=== PATIENT | male | born 1975 | race Caucasian/White ===

== ENCOUNTER 2016-04-06 10:26 | Emergency (ER) | payer OTHER ==
[2016-04-06 10:35] VITALS: TEMP 98.1
--- NOTE | 2016-04-06 10:53 | EDPHY ---
HPI/HX/ROS/PE/MDM Narrative: CHIEF COMPLAINT: Neck abscess HPI: The patient is a 41 y/o male arriving at the recommendation of his PCP with a painful abscess on the right side of his neck. He reports he has a history of "boils" that usually drain on their own; he does not know what causes these abscesses. He first noticed some swelling and a small bump last weekend, about 6 days ago. He says it was largest on Saturday and has decreased slightly in size and draining a small amount of fluid since then. He denies fever or systemic illness. No other pertinent medical history. REVIEW OF SYSTEMS: Aside from elements discussed in the HPI, a comprehensive 10-point review of systems was reviewed and is negative. PMH: Recurrent abscesses SOCIAL HISTORY: Works as manager call center. Lives in [place]. PCP: Dr. Sanchez. PHYSICAL EXAM: General:Patient is alert, in no acute distress. ENT:Eyes are normal to inspection. ENT inspection normal. Neck: Cutaneous abscess with small necrotic center measuring 1in diameter just inferior to right ear, 2cm of surrounding erythema and cellulitis. Full range of motion. Respiratory:No respiratory distress. Breath sounds normal bilaterally. Cardiovascular: Regular rate and rhythm. Strong peripheral pulses. Normal cap refill. Abdomen:The abdomen is nontender to palpation. There are no peritoneal signs. There are normal bowel sounds. Back: Normal to inspection. No tenderness to palpation. Skin: Normal color. No rash. Warm and dry. Extremities: Normal appearance. Full range of motion. Neuro: Oriented x3. Normal motor function. Normal sensory function. ED Course: Procedure: Limited bedside ultrasound of the right side of neck A limited bedside ultrasound was performed and interpreted by myself for abscess evaluation. The study was positive for small phlegmon abscess above the muscle. Large vessels were identified and not located near the site of abscess The procedure was interpreted and performed by myself, Dr. Olivas. Procedure: Incision and Drainage abscess. The patient's abscess was located on the right side of his neck inferior to ear. Risks, benefits, alternatives discussed with the patient and consent obtained. The area was prepped and draped in sterile fashion. The patient received local anesthesia with 1% lidocaine with epinephrine. The abscess was incised with a #11 blade and 1-2cc of purulent drainage was expressed. Swabs were taken for culture. The wound was packed. The patient tolerated the procedure well. The procedure was performed by myself. IV established. 1gm IV Vancomycin administered. Discussed follow up instructions with ENT or PCP in 2 days for packing removal. He will be discharged on Keflex. Return precautions given. He is comfortable with this plan. MDM: This patient presents with cutaneous abscess to the lateral aspect of his neck. I did offer him ENT consultation verses incision and drainage here in the emergency department by myself and he elected to go with the latter. I used a bedside ultrasound to identify the area and exclude any adjacent blood vessels or nerves. Under direct ultrasound visualization, I performed small shallow incision and drainage which did result in some pus drainage. Due to the location of the abscess, the incision was not extended beyond 1 cm in width. Packing was placed. The the patient was treated with 1 g of vancomycin and will be discharged on Keflex. I did send the swab for culture. I explained to the patient the high risk nature of the location of his abscess and he promises to return for any worsening of condition. 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 General Time Seen by Provider: 04/06/16 10:42 Initial Vital Signs: Initial Vital Signs Temperature (C) 36.7 C 04/06/16 10:31 Heart Rate 71 04/06/16 10:31 Respiratory Rate 18 04/06/16 10:31 Blood Pressure 112/78 04/06/16 10:31 O2 Sat (%) 96 04/06/16 10:31 O2 Delivery Mode Room Air Allergies/Adverse Reactions: Sulfa (Sulfonamide Antibiotics) Allergy (Verified 04/06/16 10:35) Home Medications: Medication Instructions Recorded Cephalexin [Keflex] 500 mg PO Q6H #28 cap 04/06/16 Departure - Departure Disposition: Home, Routine, Self-Care Clinical Impression: Neck abscess Condition: Good Instructions: Cephalexin (By mouth), Abscess (ED) Additional Instructions: 1. Take Keflex (antibiotic) as prescribed. Be sure to finish the entire prescription even if you feel better. 2. Follow up with your PCP or ENT to have packing removed in 2 days. You've been referred to Dr. Clayton, ENT, to follow up with as needed. 3. Use Tylenol or ibuprofen as directed on the packaging when needed for pain. 4. Monitor the site regularly. I recommend taking pictures of it daily and bringing those to your follow up appointment. 5. Return to the ED for failure to improve after 3-4 days, fever, or worsening redness and pain. Referrals: Ed Sanchez MD [Primary Care Provider] - As per Instructions Hernan Clayton MD [Medical Doctor] - As per Instructions Prescriptions: Cephalexin [Keflex] 500 mg PO Q6H #28 cap Report Scribed for: John Olivas Report Scribed by: Monika Geronimo Date of Report: 04/06/16 Time of Report: 10:45 Physician Review and Approval Statement: Portions of this note were transcribed by an ED scribe. I personally performed the history, physical exam, and medical decision making; and confirm the accuracy of the information in the transcribed note.
[2016-04-06] MEDS ORDERED: VANCOMYCIN HCL/NORMAL SALINE 250 ML IV ONE (11:18)
[2016-04-06 11:35] LABS: % IMMATURE GRANULYOCYTES 0.4 % (0.0-1.1); ABSOLUTE IMMATURE GRANULOCYTES 0.04 10^3/uL (0.00-0.10); ADD DIFF? NO; ADD MORPH? NO; ADD SCAN? NO; ATYPICAL LYMPHOCYTE FLAG 20 (0-99); FRAGMENT RBC FLAG 0 (0-99); HEMATOCRIT 48.3 % (40.0-51.0); HEMOGLOBIN 17.2 g/dL (13.7-17.5); LEFT SHIFT FLG 0 (0-99); LIPEMIA HEMOLYSIS FLAG 90 (0-99); MEAN CELL HEMOGLOBIN 30.8 pg (27.9-34.1); MEAN CELL HEMOGLOBIN CONCENTR. 35.6 g/dL (32.4-36.7); MEAN CELL VOLUME 86.6 fL (81.5-99.8); MEAN PLATELET VOLUME 10.5 fL (8.7-11.7); PLATELET CLUMPS FLAG 10 (0-99); PLATELET COUNT 275 10^3/uL (150-400); RED BLOOD CELL COUNT 5.58 10^6/uL (4.40-6.38)
[2016-04-06 12:04] LABS: ANION GAP 11 mEq/L (8-16); CALCIUM 9.1 mg/dL (8.5-10.4); CARBON DIOXIDE 24 mEq/l (22-31); CHLORIDE 108 mEq/L (97-110); CREATININE 0.8 mg/dL (0.7-1.3); GLOMERULAR FILTRATION RATE > 60; GLUCOSE 96 mg/dL (70-100); POTASSIUM 4.3 mEq/L (3.5-5.2); SODIUM 143 mEq/L (134-144)
[2016-04-06 12:42] VITALS: BP 136/86; PULSE 74; RESP 16; O2SAT 95
== END 2016-04-06 12:49 | disposition home or self-care (01) ==
PROC: 0J9400Z Drainage of Right Neck Subcutaneous Tissue and Fascia with Drainage Device, Open Approach (ICD-10-PCS; principal; 2016-04-06)
DX: L02.11 Cutaneous abscess of neck (principal)
CPT/HCPCS: 96374; J3370

== ENCOUNTER → 2018-04-21 | Outpatient (CLI) | payer OTHER | LOC: BMCIMAGING 13:35 | PROVIDERS: ATTEND Urology | DX: N50.819 Testicular pain, unspecified (principal); N43.3 Hydrocele, unspecified ==